=== PATIENT | female | born 1965 | race Caucasian/White ===

== ENCOUNTER 2017-01-10 12:53 | Outpatient (CLI) | payer OTHER | END 2017-01-10 17:24 | disposition home or self-care (01) | LOC: SMA 12:53 | PROVIDERS: ATTEND General Practice | DX: Z12.31 Encounter for screening mammogram for malignant neoplasm of breast (principal) | CPT/HCPCS: G0202 ==

== ENCOUNTER 2017-01-29 13:02 | Outpatient (CLI) | payer OTHER | END 2017-01-29 19:34 | disposition home or self-care (01) | LOC: SMA 13:02 | PROVIDERS: ATTEND General Practice | DX: R92.1 Mammographic calcification found on diagnostic imaging of breast (principal) | CPT/HCPCS: G0204 ==

== ENCOUNTER 2017-02-01 13:07 | Outpatient (CLI) | payer OTHER | END 2017-02-01 19:32 | disposition home or self-care (01) | LOC: SUS 13:07 | PROVIDERS: ATTEND General Practice | DX: N63 Unspecified lump in breast (principal); R22.9 Localized swelling, mass and lump, unspecified | CPT/HCPCS: 76641 ==

== ENCOUNTER 2017-03-07 16:54 | Emergency (ER) | payer OTHER ==
[~2017-03-07] VITALS: Ht 172.7 cm; Wt 66.7 kg
[2017-03-07 16:55] VITALS: BP 116/72; PULSE 90; RESP 18; TEMP 97.2; O2SAT 100
--- NOTE | 2017-03-07 16:55 | NUR ---
BROUGHT BACK TO BED #6 AND TRIAGED. REPORT GIVEN TO RAYNA
--- NOTE | 2017-03-07 16:55 | NUR ---
Pt report received from HARISH Haque. Pt c/o migrain headache with palpitations for the last 5 days. Pt denies c/o C/P or SOB. Pt on clinical research monitor and displays NSR.
[2017-03-07] MEDS ORDERED: PROCHLORPERAZINE EDISYLATE 10 MG/2 ML VIAL IM ONE (17:30)
[2017-03-07] MEDS ORDERED: KETOROLAC TROMETHAMINE 60 MG/2 ML VIAL IM ONE (17:30)
--- NOTE | 2017-03-07 18:00 | NUR ---
No needs verbalized at this time. Pt denies c/o C/P or SOB.
[2017-03-07 18:08] LABS: BASOPHILS % (AUTO) 0.6 % (0.0-2.0); EOSINOPHILS # (AUTO) 0.2 K/uL (0.0-0.4); HEMATOCRIT 40.3 % (36-48); HEMOGLOBIN 13.7 g/dL (12.0-16.0); LYMPHOCYTES # (AUTO) 2.1 K/uL (1.0-5.5); LYMPHOCYTES % (AUTO) 30.1 % (20.5-51.5); MEAN CORPUSCULAR HEMOGLOBIN 31 pg (27-31); MEAN CORPUSCULAR HGB CONC 34 % (32-36); MEAN CORPUSCULAR VOLUME 91 fL (79.0-98.0); MONOCYTES # (AUTO) 0.5 K/uL (0.0-1.0); MONOCYTES % (AUTO) 7.2 % (1.7-9.3); NEUTROPHILS # (AUTO) 4.1 K/uL (1.8-7.7); NEUTROPHILS % (AUTO) 59.1 % (40.0-70.0); PLATELET COUNT (AUTO) 237 K/uL (130-430); RED BLOOD CELL COUNT(AUTO) 4.41 MIL/uL (4.2-6.2); RED CELL DISTRIBUTION WIDTH 12.2 % (9.0-15.0); WHITE BLOOD COUNT (AUTO) 6.9 K/uL (4.8-10.8)
[2017-03-07 18:12] LABS: CALCIUM 9.2 mg/dL (8.4-11.0); CREATININE 1.02 mg/dL (0.55-1.30)
[2017-03-07 18:17] LABS: ALBUMIN 3.6 g/dL (3.4-4.8); TOTAL BILIRUBIN 0.3 mg/dL (0.0-1.0)
--- NOTE | 2017-03-07 19:17 | NUR ---
Care endorsed from HARISH Bay to HARISH Gamble.
--- NOTE | 2017-03-07 19:20 | NUR ---
ER Dr. Velez at bedside examining patient.
[2017-03-07 20:00] VITALS: BP 118/70; PULSE 85; RESP 18; TEMP 97.4; O2SAT 100
--- NOTE | 2017-03-07 20:00 | NUR ---
Patient given written and verbal discharge instructions and verbalizes understanding. ER MD discussed with patient the results and treatment provided. Patient in stable condition. ID arm band removed. Rx of fiorinal given. Patient educated on pain management and to follow up with PMD. Pain Scale 0/10. Opportunity for questions provided and answered.
== END 2017-03-07 20:00 | disposition home or self-care (01) ==
LOC: SED 16:54
DX: G43.909 Migraine, unspecified, not intractable, without status migrainosus (principal); R07.89 Other chest pain
CPT/HCPCS: 36415; 70450; 71010; 80053; 84484; 85025; 93005; 96372; 99285; J0780; J1885

== ENCOUNTER 2017-03-22 07:48 | Outpatient (CLI) | payer OTHER ==
[2017-03-22 08:27] LABS: BASOPHILS % (AUTO) 0.6 % (0.0-2.0); EOSINOPHILS # (AUTO) 0.2 K/uL (0.0-0.4); EOSINOPHILS % (AUTO) 3.4 % (0.0-4.0); HEMATOCRIT 42.7 % (36-48); HEMOGLOBIN 14.1 g/dL (12.0-16.0); LYMPHOCYTES % (AUTO) 30.5 % (20.5-51.5); MEAN CORPUSCULAR HEMOGLOBIN 30 pg (27-31); MEAN CORPUSCULAR HGB CONC 33 % (32-36); MEAN CORPUSCULAR VOLUME 91 fL (79.0-98.0); MONOCYTES # (AUTO) 0.4 K/uL (0.0-1.0); MONOCYTES % (AUTO) 6.6 % (1.7-9.3); NEUTROPHILS # (AUTO) 3.8 K/uL (1.8-7.7); NEUTROPHILS % (AUTO) 58.9 % (40.0-70.0); PLATELET COUNT (AUTO) 266 K/uL (130-430); RED CELL DISTRIBUTION WIDTH 12.5 % (9.0-15.0); WHITE BLOOD COUNT (AUTO) 6.4 K/uL (4.8-10.8)
[2017-03-22 08:56] LABS: ALBUMIN 4.1 g/dL (3.4-4.8); CALCIUM 9.4 mg/dL (8.4-11.0); CREATININE 0.69 mg/dL (0.55-1.30); POTASSIUM 4.3 mmol/L (3.5-5.1); TOTAL BILIRUBIN 0.3 mg/dL (0.0-1.0)
[2017-03-22 09:39] LABS: THYROID STIMULATING HORMONE 1.44 uIu/mL (0.36-3.74)
[2017-03-23 12:07] LABS: FOLATE (FOLIC ACID) >20.0 ng/mL (>3.0)
== END 2017-03-22 19:20 | disposition home or self-care (01) ==
LOC: SLB 07:48
PROVIDERS: ATTEND Family Medicine
DX: Z00.01 Encounter for general adult medical examination with abnormal findings (principal); R79.89 Other specified abnormal findings of blood chemistry
CPT/HCPCS: 36415; 72050-TC; 80053; 82306; 82607; 82746; 84443-TC; 85025

== ENCOUNTER 2017-04-28 15:58 | Emergency (ER) | payer OTHER ==
[~2017-04-28] VITALS: Ht 172.7 cm; Wt 67.1 kg
[2017-04-28 16:05] VITALS: BP_SYST 149
[2017-04-28] MEDS ORDERED: KETOROLAC TROMETHAMINE 30 MG VIAL IVP ONE (16:30)
[2017-04-28] MEDS ORDERED: NACL 0.9% 1,000 ML IV ONE ×2 (16:30→17:45)
[2017-04-28 16:49] LABS: BASOPHILS % (AUTO) 0.6 % (0.0-2.0); EOSINOPHILS # (AUTO) 0.2 K/uL (0.0-0.4); EOSINOPHILS % (AUTO) 3.1 % (0.0-4.0); HEMATOCRIT 39.8 % (36-48); HEMOGLOBIN 13.6 g/dL (12.0-16.0); LYMPHOCYTES # (AUTO) 1.4 K/uL (1.0-5.5); LYMPHOCYTES % (AUTO) 22.7 % (20.5-51.5); MEAN CORPUSCULAR HEMOGLOBIN 32 pg (27-31); MEAN CORPUSCULAR HGB CONC 34 % (32-36); MEAN CORPUSCULAR VOLUME 92 fL (79.0-98.0); MONOCYTES # (AUTO) 0.5 K/uL (0.0-1.0); MONOCYTES % (AUTO) 7.9 % (1.7-9.3); NEUTROPHILS # (AUTO) 3.9 K/uL (1.8-7.7); NEUTROPHILS % (AUTO) 65.7 % (40.0-70.0); PLATELET COUNT (AUTO) 243 K/uL (130-430); RED BLOOD CELL COUNT(AUTO) 4.32 MIL/uL (4.2-6.2); RED CELL DISTRIBUTION WIDTH 12.9 % (9.0-15.0)
[2017-04-28 17:00] LABS: ALBUMIN 3.9 g/dL (3.4-4.8); CALCIUM 9.1 mg/dL (8.4-11.0); CREATININE 0.75 mg/dL (0.55-1.30); POTASSIUM 3.7 mmol/L (3.5-5.1); TOTAL BILIRUBIN 0.3 mg/dL (0.0-1.0)
[2017-04-28 17:13] LABS: BILIRUBIN,URINE NEGATIVE (NEGATIVE); CLARITY/URINE CLEAR (CLEAR); COLOR,URINE YELLOW (YELLOW); GLUCOSE,URINE NEGATIVE (NEGATIVE); KETONES,URINE NEGATIVE (NEGATIVE); LEUKOCYTE ESTERASE ,URINE NEGATIVE (NEGATIVE); NITRITE, URINE NEGATIVE (NEGATIVE); PROTEIN URINE NEGATIVE (NEGATIVE); UROBILINOGEN,URINE 0.2 (0.2-1.0)
[2017-04-28 17:14] LABS: BLOOD, URINE TRACE (NEGATIVE)
[2017-04-28 17:34] LABS: BACTERIA,URINE None Seen /HPF (None Seen); WBC,URINE 0-3 /HPF (0-3)
[2017-04-28] MEDS ORDERED: HYDROcodone/ACETAMIN 7.5-325 MG TAB PO ONE (18:00)
[2017-04-28] MEDS ORDERED: FAMCICLOVIR 250 MG TABLET (FAMVIR) PO ONE (18:45)
[2017-04-28] MEDS ORDERED: ACYCLOVIR 400 MG TABLET ONE (19:20)
[2017-04-28] MEDS ORDERED: ACYCLOVIR 400 MG TABLET PO ONE (19:30)
[2017-04-28 19:39] VITALS: BP_SYST 139
== END 2017-04-28 19:39 | disposition home or self-care (01) ==
LOC: SED 15:58
DX: K52.9 Noninfective gastroenteritis and colitis, unspecified (principal); N36.8 Other specified disorders of urethra; R03.0 Elevated blood-pressure reading, without diagnosis of hypertension; B02.9 Zoster without complications
CPT/HCPCS: 36415; 74176; 80053; 81000; 81025; 83690; 85025; 96361; 96374; 99285; J1885; J7030